=== PATIENT | female | born 1995 | race Caucasian/White ===

== ENCOUNTER 2018-12-18 16:30 | Emergency (ER) | payer SELFPAY ==
[~2018-12-18] VITALS: Ht 154.9 cm; Wt 40.3 kg
[2018-12-18 16:34] VITALS: Ht 154.9 cm; Wt 40.3 kg
[2018-12-18] MEDS ORDERED: SOD CHLORIDE 0.9% 500 ML IV STA (17:32)
[2018-12-18] MEDS ORDERED: KETOROLAC 30 MG INJ IV STA (17:40)
[2018-12-18 20:40] VITALS: BP 115/67; PULSE 89; RESP 18
--- NOTE | 2018-12-18 20:45 | ERD ---
ER Documentation Chief Complaint Chief Complaint pt bib family with c/o heavy vag bleeding today with hand numbness HPI 23-year-old female patient with no significant past medical history presents to the ED stating that she has bilateral paresthesias, fatigue earlier today. Patient reports that it occurs intermittently for the past year, once a month in association with her menstruation. Patient reports that she also has lower abdominal pain. States that she just started her menstruation earlier today. Denies any chest pain, shortness of breath, nausea, vomiting, diarrhea, neck stiffness. Patient reports that she had to change 2 pads. ROS All systems reviewed and are negative except as per history of present illness. Medications Home Meds No Active Prescriptions or Reported Meds Allergies Allergies: Coded Allergies: No Known Allergy (Unverified , 02/09/14) PMhx/Soc History of Surgery: No Anesthesia Reaction: No Hx Neurological Disorder: No Hx Respiratory Disorders: No Hx Cardiac Disorders: No Hx Psychiatric Problems: No Hx Miscellaneous Medical Probl: No Hx Alcohol Use: No Hx Substance Use: No Hx Tobacco Use: Yes (marijuana) Smoking Status: Current some day smoker FmHx Family History: No diabetes, No coronary disease Physical Exam Vitals Vital Signs Date Temp Pulse Resp B/P (MAP) Pulse Ox O2 O2 Flow FiO2 Time Delivery Rate 12/18/18 98.1 89 18 115/67 100 Room Air 20:40 (83) 12/18/18 97.5 87 18 108/64 100 16:34 (79) Physical Exam Const: Xbz-[id number], well-nourished. In no acute distress. Head: Atraumatic, normocephalic Eyes: Normal Conjunctiva without injection. No purulent discharge. ENT: Normal external ear, nose. Moist oropharynx without tonsillar exudates. Non-erythematous pharynx. Uvula midline. No drooling. No trismus. Neck: No cervical midline tenderness. Full range of motion. No meningismus. No cervical lymphadenopathy. No JVD. Resp: Clear to auscultation bilaterally. No wheezing, rhonchi, rales, or crackles. No accessory muscle use. No retractions. Cardio: Regular rate and rhythm. No murmurs, rubs or gallops. Abd: Soft, right and left lower quadrant tenderness, non distended. Normal bowel sounds. No palpable masses. No rebound tenderness. No guarding. Negative McBurney's point. Negative psoas sign. Negative obturator sign. Skin: No petechiae or rashes Back: No midline tenderness. No CVA tenderness. Ext: No cyanosis, or edema. Neur: Awake and alert. Normal gait. Normal coordination. Psych: Normal Mood and Affect Result Diagram: 12/18/18175112/18/181751 Results 24 hrs Laboratory Tests Test 12/18/18 17:52 12/18/18 18:03 12/18/18 18:04 White Blood Count 13.1 10^3/ul Red Blood Count 4.35 10^6/ul Hemoglobin 13.6 g/dl Hematocrit 41.6 % Mean Corpuscular Volume 95.6 fl Mean Corpuscular Hemoglobin 31.3 pg Mean Corpuscular 32.7 g/dl Hemoglobin Concent Red Cell Distribution Width 12.7 % Platelet Count 319 10^3/UL Mean Platelet Volume 9.6 fl Immature Granulocytes % 0.500 % Neutrophils % 74.5 % Lymphocytes % 19.0 % Monocytes % 4.6 % Eosinophils % 1.2 % Basophils % 0.2 % Nucleated Red Blood Cells % 0.0 /100WBC Immature Granulocytes # 0.070 10^3/ul Neutrophils # 9.8 10^3/ul Lymphocytes # 2.5 10^3/ul Monocytes # 0.6 10^3/ul Eosinophils # 0.2 10^3/ul Basophils # 0.0 10^3/ul Nucleated Red Blood Cells # 0.0 10^3/ul Sodium Level 140 mmol/L Potassium Level 3.6 mmol/L Chloride Level 101 mmol/L Carbon Dioxide Level 27 mmol/L Anion Gap 12 Blood Urea Nitrogen 11 mg/dl Creatinine 0.59 mg/dl Est Glomerular Filtrat Rate mL/min > 60 mL/min Glucose Level 87 mg/dl Calcium Level 10.0 mg/dl Total Bilirubin 0.4 mg/dl Direct Bilirubin 0.00 mg/dl Indirect Bilirubin 0.4 mg/dl Aspartate Amino Transf (AST/SGOT) 22 IU/L Alanine 18 IU/L Aminotransferase (ALT/SGPT) Alkaline Phosphatase 46 IU/L Total Protein 8.3 g/dl Albumin 4.9 g/dl Globulin 3.40 g/dl Albumin/Globulin Ratio 1.44 Lipase 115 U/L Thyroid Stimulating Hormone (TSH) 0.191 MIU/L Free Thyroxine Index 3.57 ug/ml Thyroxine (T4) 12.9 ug/dl Triiodothyronine (T3) Uptake 27.7 % Bedside Urine pH (LAB) 6.0 Bedside Urine Protein (LAB) 1+ Bedside Urine Glucose (UA) Negative Bedside Urine Ketones (LAB) 2+ Bedside Urine Blood 3+ Bedside Urine Nitrite (LAB) Negative Bedside Urine Leukocyte Esterase Negative (L POC Beta HCG, Qualitative NEGATIVE Current Medications Medications Dose Sig/Gerry Start Time Status Last (Trade) Ordered Route PRN Stop Time Admin Dose Reason Admin Sodium 500 ml @ Q1H STAT 12/18/18 DC 12/18/18 Chloride 500 mls/hr IV 17:32 18:02 12/18/18 18:31 Ketorolac 30 mg ONCE STAT 12/18/18 DC 12/18/18 Tromethamine IV 17:40 18:13 (Toradol) 12/18/18 17:41 Procedures/MDM 23-year-old female patient with no significant past medical history presents to the ED complaining of her menstruation starting, paresthesias that started intermittently for bilateral hands. Patient is afebrile and nontoxic-appearing. Patient was further worked up with CBC, CMP, lipase, UA, thyroid panel, EKG, pelvic ultrasound, ultrasound of the abdomen. Patient was given 500 mL of fluids with improvement of her symptoms. CBC: No leukocytosis. No e/o of systemic infection. No e/o anemia. CMP: No e/o severe acidosis, alkalosis, renal failure, diabetic ketoacidosis, liver disease Lipase within normal limits. Urine: No leukocyte esterase, no nitrites, no hematuria. Urine : Negative She has a low TSH and elevated T4. Differentials include hyperthyroidism. Patient was strictly instructed to follow-up with her family physician for further evaluation and treatment. Discussed with Dr. Montalvo who agreed with the management and discharge plan. EKG reviewed and interpreted by Dr. Montalvo Rate/Rhythm: [71 bpm, Normal Sinus Rhythm] No ectopy, no ST elevations, normal axis. QRS, ST, T-waves: [No changes consistent w/ acute ischemia] Impression: [No evidence of ischemia or arrhythmia] Low suspicion for acute myocardial infarction, pneumothorax, pneumonia, cardiac tamponade, Dhmca-Zhwjbblgy-Nrgcz Syndrome, Brugada Syndrome, pulmonary embolism, AAA, aortic dissection, thoracic aortic dissection, endocarditis, myocarditis, pericarditis, cocaine-related ischemia, Boerhaave's syndrome, cardiac dysrhythmias,meningitis, intracranial bleed, seizure, stroke, TIA or other emergent conditions. IMPRESSION: Appendix not visualized. If there is a high clinical suspicion for appendicitis, cross-sectional imaging is recommended. IMPRESSION: 1. Unremarkable pelvic sonogram. Low suspicion for ectopic , ovarian torsion, gastritis, GERD, peptic ulcer disease, cholecystitis, choledocholithiasis, cholangitis, pancreatitis, appendicitis, bowel obstruction, ileus, volvulus, nephrolithiasis, pyelonephritis, hepatitis, perforated viscus, diverticulitis, strangulated/incarcerated hernia, DKA, acute abdomen, mesenteric ischemia or other emergent conditions. Discharge medications: Paresthesia of both hands, Fatigue Follow up with primary care physician in 1-2 days for referral to lawyer criminal. Instructed patient to return to the ED sooner for any worsening symptoms. Patient's questions were answered. Patient understood and agreed with discharge plan. Patient discharged stable. Departure Diagnosis: Primary Impression: Paresthesia of both hands Additional Impression: Fatigue Fatigue type: unspecified Qualified Codes: R53.83 - Other fatigue Condition: Stable Patient Instructions: Common Thyroid Problems, Paraesthesias Referrals: COMMUNITY CLINICS YOU HAVE RECEIVED A MEDICAL SCREENING EXAM AND THE RESULTS INDICATE THAT YOU DO NOT HAVE A CONDITION THAT REQUIRES URGENT TREATMENT IN THE EMERGENCY DEPARTMENT. FURTHER EVALUATION AND TREATMENT OF YOUR CONDITION CAN WAIT UNTIL YOU ARE SEEN IN YOUR DOCTORS OFFICE WITHIN THE NEXT 1-2 DAYS. IT IS YOUR RESPONSIBILITY TO MAKE AN APPOINTMENT FOR FOLOW-UP CARE. IF YOU HAVE A PRIMARY DOCTOR --you should call your primary doctor and schedule an appointment IF YOU DO NOT HAVE A PRIMARY DOCTOR YOU CAN CALL OUR PHYSICIAN REFERRAL HOTLINE AT IF YOU CAN NOT AFFORD TO SEE A PHYSICIAN YOU CAN CHOSE FROM THE FOLLOWING [facility] CLINICS [facility] [address] [facility]. [facility] [address] [facility]. [facility] [address] [facility]. [facility] [address] [facility]. [facility] [address] [facility] [address] [facility]. [facility] YOU HAVE RECEIVED A MEDICAL SCREENING EXAM AND THE RESULTS INDICATE THAT YOU DO NOT HAVE A CONDITION THAT REQUIRES URGENT TREATMENT IN THE EMERGENCY DEPARTMENT. FURTHER EVALUATION AND TREATMENT OF YOUR CONDITION CAN WAIT UNTIL YOU ARE SEEN IN YOUR DOCTORS OFFICE WITHIN THE NEXT 1-2 DAYS. IT IS YOUR RESPONSIBILITY TO MAKE AN APPOINTMENT FOR FOLOW-UP CARE. IF YOU HAVE A PRIMARY DOCTOR --you should call your primary doctor and schedule and appointment IF YOU DO NOT HAVE A PRIMARY DOCTOR YOU CAN CALL OUR PHYSICIAN REFERRAL HOTLINE AT . IF YOU CAN NOT AFFORD TO SEE A PHYSICIAN YOU CAN CHOSE FROM THE FOLLOWING [facility] INSTITUTIONS: [facility] [address] [place] [address] [facility] [address], [place] [id number] [place] [address] [address] [place] [address] [facility] URGENT [facility]/SPECIALTIES Additional Instructions: Call your primary care doctor TOMORROW for an appointment during the next 2-3 days.See the doctor sooner or return here if your condition worsens before your appointment time. NIRAV HOLMAN PA-C Dec 18, 2018 20:44
== END 2018-12-18 20:41 | disposition home or self-care (01) ==
LOC: FTE 16:30
DX: R20.2 Paresthesia of skin (principal); F17.210 Nicotine dependence, cigarettes, uncomplicated; R53.83 Other fatigue; R10.2 Pelvic and perineal pain
CPT/HCPCS: 76705; 76856; 80053; 81003; 81025; 83690; 84436; 84443; 84479; 85025; 93005; J1885; J7040; 36415; 96361; 96374

== ENCOUNTER 2019-01-22 23:39 | Emergency (ER) | payer SELFPAY ==
[~2019-01-22] VITALS: Wt 41.7 kg
--- NOTE | 2019-01-23 03:23 | ERD ---
ER Documentation Chief Complaint Chief Complaint R SIDE PELVIC PAIN X'S 3 DAYS HPI This is a 23-year-old female presents to emergency department with complaints of right-sided pelvic pain for about 3 days. Patient stated that she is concerned because this radiates to her right lower extremity. She has no difficulty walking. She is sexually active with one partner only. Partner has no symptoms. LMP: Stated it was Thursday. A0. Denies headache, head injury, loss of consciousness, dizziness, neck pain, neck stiffness, throat pain, difficulty swallowing, difficulty breathing lying flat, shoulder pain, chest pain, back pain, abdominal pain, nausea, vomiting, constipation, diarrhea, urinary symptoms, or possibility being , loss of bowel and bladder control, trauma, injury, falls, difficulty walking due to pain, numbness or tingling sensation, calf pain, recent travel, recent major surgery in the last 3 weeks, calf pain, recent long travel, recent exposure to any illness, recent antibiotic use in the last 3 months, fever, chills, seizures. Past medical history: Surgical history: Social: Denies smoking, use of alcoholic beverages, use of illegal drugs. ROS All systems reviewed and are negative except as per history of present illness. Medications Home Meds Active Scripts Ibuprofen* (Motrin*) 400 Mg Tab, 400 MG PO Q6H PRN for PAIN AND OR ELEVATED TEMP, #30 TAB Prov:YUNIEL PRADHANAR F 01/23/19 Cephalexin* (Keflex*) 500 Mg Capsule, 500 MG PO TID for 7 Days, CAP Prov:PASILABAN,KLAR F 01/23/19 Allergies Allergies: Coded Allergies: No Known Allergy (Unverified , 02/09/14) PMhx/Soc History of Surgery: No Anesthesia Reaction: No Hx Neurological Disorder: No Hx Respiratory Disorders: No Hx Cardiac Disorders: Yes (heart murmer) Hx Psychiatric Problems: No Hx Miscellaneous Medical Probl: Yes (thyroid infection) Hx Alcohol Use: No Hx Substance Use: Yes (marijuana,last used 11/2018) Hx Tobacco Use: No Smoking Status: Never smoker Physical Exam Vitals Vital Signs Date Temp Pulse Resp B/P (MAP) Pulse Ox O2 O2 Flow FiO2 Time Delivery Rate 01/23/19 85 18 110/60 97 Room Air 06:48 (77) 01/22/19 98.7 90 18 102/58 98 23:41 (73) Physical Exam Const: No acute distress Head: Atraumatic Eyes: Normal Conjunctiva ENT: Normal External Ears, Nose and Mouth. Neck: Full range of motion. No meningismus. Resp: Clear to auscultation bilaterally Cardio: Regular rate and rhythm, no murmurs Abd: Soft, non tender, non distended. Normal bowel sounds. Examined with female lead atg developerAna Rosa RN. Bilateral inguinal area has no swelling/tenderness/discoloration. Negative Barker sign. Negative Ronald sign (heel jar test). Negative psoas sign. Negative Rovsing sign. No CVA tenderness. No neurological deficits. Ambulatory with steady gait. Skin: No petechiae or rashes Back: No midline or flank tenderness Ext: No cyanosis, or edema. Examined with female lead atg developerAna Rosa RN. Bilateral lower extremity has no swelling/deformity and are unremarkable. No calf tenderness bilaterally. No neurovascular deficits. Neur: Awake and alert. No neurological deficits. Ambulatory with steady gait. Psych: Normal Mood and Affect Result Diagram: 01/23/19 0354 01/23/19 0354 Results 24 hrs Laboratory Tests Test 01/23/19 03:54 01/23/19 03:55 01/23/19 04:09 White Blood Count 9.0 10^3/ul Red Blood Count 4.03 10^6/ul Hemoglobin 12.7 g/dl Hematocrit 38.0 % Mean Corpuscular Volume 94.3 fl Mean Corpuscular Hemoglobin 31.5 pg Mean Corpuscular 33.4 g/dl Hemoglobin Concent Red Cell Distribution Width 12.9 % Platelet Count 290 10^3/UL Mean Platelet Volume 9.7 fl Immature Granulocytes % 0.300 % Neutrophils % 46.2 % Lymphocytes % 45.1 % Monocytes % 6.1 % Eosinophils % 2.1 % Basophils % 0.2 % Nucleated Red Blood Cells % 0.0 /100WBC Immature Granulocytes # 0.030 10^3/ul Neutrophils # 4.1 10^3/ul Lymphocytes # 4.0 10^3/ul Monocytes # 0.6 10^3/ul Eosinophils # 0.2 10^3/ul Basophils # 0.0 10^3/ul Nucleated Red Blood Cells # 0.0 10^3/ul Sodium Level 144 mmol/L Potassium Level 3.8 mmol/L Chloride Level 106 mmol/L Carbon Dioxide Level 27 mmol/L Anion Gap 11 Blood Urea Nitrogen 13 mg/dl Creatinine 0.58 mg/dl Est Glomerular Filtrat > 60 mL/min Rate mL/min Glucose Level 87 mg/dl Calcium Level 10.4 mg/dl Total Bilirubin 0.4 mg/dl Direct Bilirubin 0.00 mg/dl Indirect Bilirubin 0.4 mg/dl Aspartate Amino 22 IU/L Transf (AST/SGOT) Alanine 16 IU/L Aminotransferase (ALT/SGPT) Alkaline Phosphatase 49 IU/L Total Protein 8.1 g/dl Albumin 4.8 g/dl Globulin 3.30 g/dl Albumin/Globulin Ratio 1.45 Amylase Level 71 U/L Lipase 113 U/L Urine Color YELLOW Urine Clarity SLIGHTLY CLOUDY Urine pH 5.0 Urine Specific Codorus 1.027 Urine Ketones TRACE mg/dL Urine Nitrite NEGATIVE mg/dL Urine Bilirubin NEGATIVE mg/dL Urine Urobilinogen NEGATIVE mg/dL Urine Leukocyte Esterase 3+ Rissa/ul Urine Microscopic RBC 11 /HPF Urine Microscopic WBC 47 /HPF Urine Squamous Epithelial Cells FEW /HPF Urine Bacteria FEW /HPF Urine Mucus MODERATE /HPF Urine Hemoglobin NEGATIVE mg/dL Urine Glucose NEGATIVE mg/dL Urine Total Protein NEGATIVE mg/dl POC Beta HCG, Qualitative NEGATIVE Current Medications Medications Dose Sig/Gerry Start Time Status Last (Trade) Ordered Route PRN Stop Time Admin Dose Reason Admin Ibuprofen 600 mg ONCE ONCE 01/23/19 Cancel (Motrin) PO 06:30 01/23/19 06:31 Ibuprofen 600 mg ONCE ONCE 01/23/19 DC 01/23/19 (Motrin) PO 06:36 06:39 01/23/19 06:37 Procedures/MDM Diagnostic tests: Blood works: Reviewed. POC urine : Negative. Urinalysis: UTI. Culture urine: Sent. Pelvic ultrasound: Unremarkable pelvic ultrasound. Treatment: Motrin. Re-evaluation: Denies abdominal pain, pelvic pain. Negative Barker sign. Negative Imer sign (heel jar test). Negative psoas sign. Negative Rovsing sign. No CVA tenderness. Able to jump twice without developing abdominal pain. Ambulatory with steady gait. No neurovascular deficits. No neurological deficits. Differential diagnosis I have low suspicion for pancreatitis, cholecystitis, diverticulitis, diverticulitis with abscess, bowel obstruction, mesenteric ischemia, ovarian torsion, ovarian cyst rupture, nephrolithiasis, pyelonephritis, obstructing kidney stone, septic stone. Final diagnosis: UTI. Prescription: Keflex. Motrin. Follow-up with PCP in the next 24-48 hours. Come back here in the emergency department for any new symptoms or any worsening symptoms. All questions and concerns were answered. Patient and family members verbalized understanding and agreed with plan of care. Hemodynamically stable on discharge. Departure Diagnosis: Primary Impression: UTI (urinary tract infection) Condition: Stable Additional Instructions: Follow-up with PCP in the next 24-48 hours. Come back here in the emergency department for any new symptoms or any worsening symptoms. BRANDAN PRADHAN Jan 23, 2019 03:23
[2019-01-23] MEDS ORDERED: IBUP-1561 PO (06:17)
[2019-01-23] MEDS ORDERED: CEPH-443 PO (06:17)
[2019-01-23] MEDS ORDERED: IBUPROFEN 600 MG TAB PO ONE ×2 (06:30→06:36)
[2019-01-23 06:48] VITALS: BP 110/60; PULSE 85; RESP 18
== END 2019-01-23 06:49 | disposition home or self-care (01) ==
LOC: FTE 23:39
DX: N39.0 Urinary tract infection, site not specified (principal)
CPT/HCPCS: 76830; 76856; 80053; 81001; 81025; 82150; 83690; 85025; 87086